=== PATIENT | male | born 1940 | race Caucasian/White ===

== ENCOUNTER 2017-03-28 08:37 | Day surgery (SDC) | payer BC ==
[2017-03-24 10:35] LABS: Basophils # (auto) 0 uL; Basophils % (auto) 0.6 % (0.0-2.0); Eosinophils # (auto) 0.3 uL; Eosinophils % (auto) 5.6 % (0.0-7.0); Hematocrit 36.1 % (41.0-53.0); Hemoglobin 11.9 g/dL (13.5-17.5); Lymphocytes # (auto) 1.5 uL; Lymphocytes % (auto) 26.1 % (10.0-50.0); Mean Corpuscular Hemoglobin 28.1 pg (28.0-32.0); Mean Corpuscular Hgb Conc. 33.1 g/dL (32.0-36.0); Monocytes # (auto) 0.4 uL; Monocytes % (auto) 6.2 % (0.0-12.0); Neutrophils # (auto) 3.6 uL; Neutrophils % (auto) 61.5 % (37.0-80.0); Nucleated Red Blood Cells % 0.2 %; Platelet Count (auto) 254 10^3/uL (140-450); Red Blood Cells 4.25 10^6/uL (4.5-5.90); Red Cell Distribution Width 15.9 % (11.8-14.3); White Blood Cell 5.8 10^3/uL (4.4-10.8)
[2017-03-24 10:47] LABS: BUN/Creatinine Ratio 18.3; Calcium 9.7 mg/dL (8.5-10.1); Potassium 4.4 mmol/L (3.5-5.1)
[2017-03-24 10:48] LABS: Urine Bacteria MOD /hpf (None Seen); Urine Blood Negative /uL (Negative); Urine Specific Gravity 1.009 (1.001-1.035); Urine WBC 187 /hpf (0 - 3)
[2017-03-24 14:26] LABS: INR 0.92 (0.9-1.15); Partial Thromboplastin Time 28.5 sec (22.64-33.71)
[~2017-03-28] VITALS: Ht 172.7 cm; Wt 85.3 kg
[~2017-03-28 08:37] MED LIST: BICA50TA7 PO; METO25TA5 PO; OXYB5TAB61 OR
[2017-03-28] MEDS ORDERED: ceFAZolin 1GM/50ML 50 ML IV ONE (09:18)
[2017-03-28] MEDS ORDERED: SODIUM CHLORIDE LOCK 10 ML ONE (10:49)
[2017-03-28] MEDS ORDERED: PROPOFOL 10 MG/ML 20 ML IV ONE (10:49)
[2017-03-28] MEDS ORDERED: MIDAZOLAM HCL 1MG/1ML-2 ML VIAL ONE (10:49)
[2017-03-28] MEDS ORDERED: ONDANSETRON HCL 4 MG/2 ML VIAL ONE (10:49)
[2017-03-28] MEDS ORDERED: fentaNYL CITRATE 100 MCG/2 ML VL ONE (10:49)
[2017-03-28] MEDS ORDERED: MIDAZOLAM HCL 1MG/1ML-2 ML VIAL IV ONE (11:23)
[2017-03-28] MEDS ORDERED: MORPHINE SULFATE 4 MG/ML SYR/VIAL IV ONE (12:00)
[2017-03-28] MEDS ORDERED: METOCLOPRAMIDE HCL 5MG/ml INJ 2ml VIAL IV ONE (12:00)
[2017-03-28 13:10] VITALS: BP 146/70
== END 2017-03-28 13:20 | disposition home or self-care (01) ==
LOC: SUR 08:37
PROVIDERS: ATTEND Urology
DX: N21.0 Calculus in bladder (principal); E66.9 Obesity, unspecified; Z68.28 Body mass index [BMI] 28.0-28.9, adult
CPT/HCPCS: 36415; 52318; 80048; 81001; 85025; 85610; 85730; 88300; J0690; J2250; J2405; J2704; J3010

== ENCOUNTER 2018-12-24 11:08 | Inpatient (IN) | payer BC ==
[2018-12-21 16:27] LABS: Basophils # (auto) 0 uL; Basophils % (auto) 0.6 % (0.0-2.0); Eosinophils # (auto) 0.4 uL; Eosinophils % (auto) 5.3 % (0.0-7.0); Hematocrit 39.4 % (41.0-53.0); Hemoglobin 13.3 g/dL (13.5-17.5); Lymphocytes # (auto) 1.7 uL; Lymphocytes % (auto) 25.3 % (10.0-50.0); Mean Corpuscular Hemoglobin 29.3 pg (28.0-32.0); Mean Corpuscular Hgb Conc. 33.8 g/dL (32.0-36.0); Mean Corpuscular Volume 86.7 fL (80.0-100.0); Monocytes # (auto) 0.7 uL; Monocytes % (auto) 10.5 % (0.0-12.0); Neutrophils # (auto) 3.9 uL; Neutrophils % (auto) 58.3 % (37.0-80.0); Platelet Count (auto) 266 10^3/uL (140-450); Red Blood Cells 4.55 10^6/uL (4.5-5.90); Red Cell Distribution Width 14.2 % (11.8-14.3); White Blood Cell 6.7 10^3/uL (4.4-10.8)
[2018-12-21 16:44] LABS: INR 1.01 (0.9-1.15); Partial Thromboplastin Time 30.6 sec (23.64-32.05)
[2018-12-21 16:55] LABS: Urine Bacteria NONE SEEN /hpf (None Seen); Urine Blood 2+ /uL (Negative); Urine Specific Gravity 1.017 (1.001-1.035); Urine WBC 997 /hpf (0 - 3); Urine WBC Clumps PRESENT /hpf (None Seen)
[2018-12-21 17:20] LABS: BUN/Creatinine Ratio 12.9; Calcium 9.6 mg/dL (8.5-10.1); Potassium 4.6 mmol/L (3.5-5.1)
[~2018-12-24] VITALS: Ht 172.7 cm; Wt 89.3 kg
[~2018-12-24 11:08] MED LIST changes: +BICA50TA13 PO; -BICA50TA7 PO
[2018-12-24] MEDS ORDERED: ceFAZolin 1GM/50ML 50 ML IV ONE ×2 (14:24→22:57)
[2018-12-24] MEDS ORDERED: fentaNYL CITRATE 100 MCG/2 ML VL ONE (14:52)
[2018-12-24] MEDS ORDERED: PROPOFOL 10 MG/ML 20 ML IV ONE (15:01)
[2018-12-24] MEDS ORDERED: ONDANSETRON HCL 4 MG/2 ML VIAL IV PRN ×2 (15:30→17:15)
[2018-12-24] MEDS ORDERED: ePHEDrine SULFATE 50 MG/ML AMP IV PRN (15:30)
[2018-12-24] MEDS ORDERED: fentaNYL CITRATE 100 MCG/2 ML VL IV PRN (15:30)
[2018-12-24] MEDS: hydrALAZINE HCL 20 MG/ML VL IV PRN ×3 (16:22→17:03)
[2018-12-24] MEDS ORDERED: hydrALAZINE HCL 20 MG/ML VL IV PRN (17:15)
[2018-12-24] MEDS ORDERED: ENALAPRILAT 1.25 MG/ML-1ML VIAL IV ONE (17:15)
[2018-12-24] MEDS ORDERED: MORPHINE SULF INJ 2 MG/ML SYRINGE 1ML IV PRN ×2 (17:15)
[2018-12-24] MEDS ORDERED: NITROGLYCERIN 0.4 MG SL TAB SL PRN (17:15)
[2018-12-24] MEDS ORDERED: DOCUSATE SOD 100 MG CAP PO PRN (17:15)
[2018-12-24] MEDS ORDERED: ACETAMINOPHEN 500 MG TAB PO PRN (17:15)
[2018-12-24] MEDS ORDERED: HYDROcodone-ACET 5/325MG TAB PO PRN (17:15)
[2018-12-24] MEDS ORDERED: cloNIDine HCL 0.1 MG TAB PO ONE (18:30)
--- NOTE | 2018-12-24 18:53 | NUR ---
Telemetry admit from ER LITZY IBRAHIM admitted to Telemetry unit after SBAR received. Patient oriented to MARIANO GALLEGOS RN primary RN, unit, room, bed, and unit policies regarding patient care and visiting hours. Patient does not have a tele box. Will need to send a face sheet in order to request a tele box for the patient. Patient placed on bedside oxygen, weighed by bedscale and encouraged to call if they need something. All questions and concerns addressed, patient verbalized understanding.
--- NOTE | 2018-12-24 19:38 | NUR ---
Closing Shift Note Patient resting in bed. Patient denies pain. Report given. Will endorse care to the night filler RN.
--- NOTE | 2018-12-24 19:40 | NUR ---
Opening Shift Note Assumed care of patient, AOx4. No S/S of distress/SOB or pain. Fall and safety precautions in place. Call light within reach. Instructed on POC and to call for assist PRN, will continue to monitor for changes Q1hr and PRN.
--- NOTE | 2018-12-24 22:00 | NUR ---
Pt not in Pyxis / Pharm called Pharmacy called to notify that pt's name is not shown in medication pyxis. For this reason, cannot give scheduled med at this. Pharmacy said to recheck in approximately 10 minutes. Will continue to recheck to see if name appears.
--- NOTE | 2018-12-24 22:30 | NUR ---
Pt name not in phyxis At this time, pt name still not in med pyxis. Cannot give scheduled med at this time (see eMar). Pharmacy called and notified. Will continue to recheck.
--- NOTE | 2018-12-24 22:44 | NUR ---
Pharm called Pharmacy called, said that system was down and would notify warehouse manager when system is working again. For this reason, scheduled will not be given at scheduled time.
[2018-12-24] MEDS ORDERED: ACETAMINOPHEN 500 MG TAB PO ONE (22:57)
[2018-12-24] MEDS: ceFAZolin 1GM/50ML 50 ML IV SCH (22:58)
[2018-12-25 05:00] VITALS: BP 100/59
[2018-12-25] MEDS: ceFAZolin 1GM/50ML 50 ML IV SCH (06:02)
[2018-12-25 07:10] LABS: Basophils # (auto) 0.1 uL; Basophils % (auto) 0.9 % (0.0-2.0); Eosinophils # (auto) 0.2 uL; Eosinophils % (auto) 3.2 % (0.0-7.0); Hematocrit 40.6 % (41.0-53.0); Hemoglobin 13.9 g/dL (13.5-17.5); Lymphocytes # (auto) 1.1 uL; Lymphocytes % (auto) 17.5 % (10.0-50.0); Mean Corpuscular Hemoglobin 29.4 pg (28.0-32.0); Mean Corpuscular Hgb Conc. 34.2 g/dL (32.0-36.0); Mean Corpuscular Volume 86.2 fL (80.0-100.0); Monocytes # (auto) 0.7 uL; Monocytes % (auto) 10.1 % (0.0-12.0); Neutrophils # (auto) 4.4 uL; Neutrophils % (auto) 68.3 % (37.0-80.0); Nucleated Red Blood Cells % 0.1 %; Platelet Count (auto) 247 10^3/uL (140-450); Red Blood Cells 4.71 10^6/uL (4.5-5.90); Red Cell Distribution Width 13.7 % (11.8-14.3); White Blood Cell 6.5 10^3/uL (4.4-10.8)
[2018-12-25 07:24] LABS: Albumin 3.1 g/dL (3.4-5.0); Anion Gap 7 (5-15); Blood Urea Nitrogen 14 mg/dL (7-18); Calcium 9.1 mg/dL (8.5-10.1); Carbon Dioxide 26 mmol/L (21-32); Chloride 102 mmol/L (98-107); Glucose 97 mg/dL (74-106); Potassium 4.1 mmol/L (3.5-5.1); Sodium 135 mmol/L (136-145)
--- NOTE | 2018-12-25 07:28 | NUR ---
Opening Shift note Assumed care of patient from maintenance supervisor 2nd shift nurse. Patient is alert and orientedx4, no signs of distress noted. at bedside. Patient and were updated on the plan of care and both verbalized understanding. Bed in the lowest position, side rails upx2 and call light in reach. patient encouraged to call for assistance.
[2018-12-25 07:31] LABS: Alanine Aminotransferase 32 U/L (16-61); Alkaline Phosphatase 99 U/L (45-117); Aspartate Aminotransferase 33 U/L (15-37); BUN/Creatinine Ratio 15.7; Bilirubin, Total 0.6 mg/dL (0.2-1.0); GFR African American 106 mL/min; GFR Non-African American 88 mL/min; Total Protein 6.3 g/dL (6.4-8.2)
[2018-12-25 09:49] VITALS: BP 121/62
[2018-12-25] MEDS ORDERED: FAMOTIDINE 20 MG TAB PO SCH (10:00)
[2018-12-25] MEDS ORDERED: amLODIPine BESYLATE 5 MG TAB PO SCH (10:00)
[2018-12-25 14:16] VITALS: BP 97/48
[2018-12-25 14:31] VITALS: BP 121/62
--- NOTE | 2018-12-25 15:25 | NUR ---
Discharge Discharge instructions given as ordered. Encourage to follow up with PMD as instructed. All questions and concerns addressed. Patient verbalized understanding. IV removed with catheter intact, pressure dressing applied, Patient sent home with Ronna per physician order. Telemetry unit returned to ICU. Patient taken to vehicle via wheelchair with all personal belongings, accompanied by staff and family member. No distress noted at time of departure.
== END 2018-12-25 15:25 | disposition home or self-care (01) | DRG 671 ==
LOC: SUR 11:08 → MERGE 19:13 → TELE-CENTR 19:13
PROVIDERS: ADMIT Urology; ATTEND Urology
PROC: 0T9D8ZZ Drainage of Urethra, Via Natural or Artificial Opening Endoscopic (ICD-10-PCS; 2018-12-24)
PROC: 0T9B70Z Drainage of Bladder with Drainage Device, Via Natural or Artificial Opening (ICD-10-PCS; principal; 2018-12-24 14:45)
DX: N35.919 Unspecified urethral stricture, male, unspecified site (principal); I16.9 Hypertensive crisis, unspecified; N21.0 Calculus in bladder; N30.90 Cystitis, unspecified without hematuria; R00.1 Bradycardia, unspecified; E66.9 Obesity, unspecified; N30.91 Cystitis, unspecified with hematuria; I10 Essential (primary) hypertension; Z68.29 Body mass index [BMI] 29.0-29.9, adult
CPT/HCPCS: 36415; 80048; 80053; 81001; 84484; 85025; 85610; 85730; 87086; G0378; J0690; J2704